=== PATIENT | female | born 1985 | race African-American/Black ===

== ENCOUNTER 2017-12-02 19:17 | Emergency (ER) | payer MEDICAID ==
[~2017-12-02] VITALS: Ht 167.6 cm; Wt 64.9 kg
[~2017-12-02 19:17] MED LIST: ALBU0.08 NEB; ALBUAER3 INH; MEDR4PAK PO
[2017-12-02 19:28] VITALS: BP 123/75; PULSE 92; RESP 18; TEMP 98.6; O2SAT 98
[2017-12-02 19:45] VITALS: RESP 20; O2SAT 99
[2017-12-02] MEDS ORDERED: predniSONE 20 MG TAB PO ONE (20:00)
[2017-12-02] MEDS: RESP: ALBUTEROL 2.5 MG/IPRATROPIUM 0.5 MG NEB (SCH) INH (20:06)
[2017-12-02] MEDS ORDERED: PRED20 PO (20:08)
[2017-12-02] MEDS ORDERED: ALBU0.08 NEB ×2 (20:08→20:27)
[2017-12-02] MEDS ORDERED: ALBUAER3 INH ×2 (20:08→20:27)
--- NOTE | 2017-12-02 20:08 | PD ---
HPI Chief Complaint: Respiratory Symptoms Time Seen by Provider: 19:43 Travel History International Travel<30 days: No Contact w/Intl Traveler<30days: No Traveled to known affect area: No History of Present Illness HPI The patient is a 32-year-old -[place] female who presents to emergency department for asthma exacerbation. The patient has a history of asthma developed shortness of breath with wheezing earlier today. The patient does note wheezing, chest tightness, and mild shortness of breath. The patient states she ran out of her albuterol inhaler and albuterol nebulizers it was unable to see her primary physician. The patient denies any fever, chills, or sweats. Patient denies any history of congestive heart failure, recent travel, recent hospitalizations, recent surgery, or history of pulmonary embolism or DVT. She denies any lower extremity edema. Symptoms are moderate. She denies any associated URI symptoms. PFSH Past Medical History Asthma: Yes Diminished Hearing: No Respiratory: Yes (asthma) Immunizations Current: Yes Tetanus Vaccination: > 5 Years Influenza Vaccination: No ?: Not LMP: PT HAS A IUD AND NO MENSES : 1 Para: 1 Past Surgical History Surgical History: No Previous Surgery Ear Surgery: Yes Social History Alcohol Use: No Tobacco Use: No Substance Use: No Allergies-Medications (Allergen,Severity, Reaction): Coded Allergies: No Known Allergies (Verified , 05/16/16) Reported Meds & Prescriptions Reported Meds & Active Scripts Active Albuterol Neb (Albuterol Sulfate) 2.5 Mg/3 Ml Neb 2.5 Mg NEB Q4HR NEB PRN Proair Hfa 8.5 GM Inh (Albuterol Sulfate) 90 Mcg/Act Aer 2 Puff INH Q4-6H PRN 108 mcg/actuation Prednisone 20 Mg Tab 40 Mg PO DAILY Take 40 mg (2 tablets) daily for 5 days Albuterol Neb (Albuterol Sulfate) 2.5 Mg/3 Ml Neb 2.5 Mg NEB Q4-6H PRN While awake Proair Hfa 8.5 GM Inh (Albuterol Sulfate) 90 Mcg/Act Aer 2 Puff INH Q4-6H PRN 108 mcg/actuation Review of Systems Except as stated in HPI: all other systems reviewed are Neg General / Constitutional: No: Fever, Chills HENT: No: Lightheadedness, Sore Throat, Congestion Cardiovascular: Positive: Chest Pain or Discomfort (Tightness with wheezing) Respiratory: Positive: Shortness of Breath, Wheezing Gastrointestinal: No: Nausea, Vomiting, Diarrhea Musculoskeletal: No: Edema Physical Exam Narrative GENERAL: Awake, alert, pleasant 32-year-old female who appears her stated age and is in no acute respiratory distress. SKIN: Focused skin assessment warm/dry. HEAD: Atraumatic. Normocephalic. EYES: Pupils equal and round. No scleral icterus. No injection or drainage. ENT: No nasal bleeding or discharge. Mucous membranes pink and moist. No erythema or exudate noted. NECK: Trachea midline. No JVD. CARDIOVASCULAR: Regular rate and rhythm. No murmur appreciated. Heart rate in the 80s. RESPIRATORY: No accessory muscle use. Prolonged expiratory phase with scattered wheezes. MUSCULOSKELETAL: No obvious deformities. No clubbing. No cyanosis. No edema. NEUROLOGICAL: Awake and alert. No obvious cranial nerve deficits. Motor grossly within normal limits. Normal speech. PSYCHIATRIC: Appropriate mood and affect; insight and judgment normal. Data Data Last Documented VS Vital Signs Date Time Temp Pulse Resp B/P (MAP) Pulse Ox O2 Delivery O2 Flow Rate FiO2 12/02/17 19:45 20 99 Room Air 12/02/17 19:40 94 12/02/17 19:28 98.6 123/75 (91) Orders Orders Ecg Monitoring (12/02/17 20:00) Oximetry (12/02/17 20:00) Prednisone (Deltasone) (12/02/17 20:00) Albuterol-Ipratropium Neb (Duoneb Neb) (12/02/17 20:00) [facility] Medical Decision Making Medical Screen Exam Complete: Yes Emergency Medical Condition: Yes Medical Record Reviewed: Yes Differential Diagnosis Differential diagnosis includes asthma exacerbation, URI, bronchitis, pneumonia , pulmonary embolism, congestive heart failure, pulmonary edema, pleural effusion. Narrative Course The patient was administered prednisone 60 mg orally and duo nebs 2. The patient was then reassessed. The patient was reassessed, her symptoms had significantly improved. The patient be discharged home. She is advised to return if symptoms worsen or progress. Diagnosis Primary Impression: Asthma exacerbation Qualified Codes: J45.21 - Mild intermittent asthma with (acute) exacerbation Patient Instructions: General Instructions Additional Instructions: Medications as directed. Follow-up with your primary physician. Return if symptoms worsen or progress. Med/Other Pt SpecificInfo: Prescription(s) given Scripts Albuterol Neb (Albuterol Neb) 2.5 Mg/3 Ml Neb 2.5 MG NEB Q4HR NEB Y for SHORTNESS OF BREATH, #60 NEBULE 3 Refills Prov: Rudolph José MD 12/02/17 Albuterol 8.5 GM Inh (Proair Hfa 8.5 GM Inh) 90 Mcg/Act Aer 2 PUFF INH Q4-6H Y for SHORTNESS OF BREATH, #1 INHALER 3 Refills 108 mcg/actuation Prov: Rudolph José MD 12/02/17 Prednisone (Prednisone) 20 Mg Tab 40 MG PO DAILY, #10 TAB 0 Refills Take 40 mg (2 tablets) daily for 5 days Prov: Rudolph José MD 12/02/17 Disposition: 01 DISCHARGE HOME Condition: Stable Rudolph José MD December 02, 2017 20:08
[2017-12-02 20:35] VITALS: BP 115/71
== END 2017-12-02 20:40 | disposition home or self-care (01) ==
LOC: PHED 19:17
DX: J45.21 Mild intermittent asthma with (acute) exacerbation (principal)
CPT/HCPCS: 94640; 94664; 99283; J7512